=== PATIENT | male | born 1950 | race Caucasian/White ===

== ENCOUNTER → 2018-08-31 | Outpatient (CLI) | payer OTHER ==
--- NOTE | 2018-08-31 15:19 | PCVCIMAG ---
APPROVED REPORT Study performed: 08/31/2018 14:10:11 EXAM: Comprehensive 2D, Doppler, and color-flow Echocardiogram Patient Location: Echo lab Room #: 3Status: routine BSA: 2.11 HR: 75 bpmBP: 142/76 mmHg Rhythm: NSR Other Information Study Quality: Good Risk Factors: Cardiac Risk Factors: Smoking, HTN,, Hyperlipidemia Indications CAD 2D Dimensions IVSd: 11.19 (7-11mm)LVOT Diam: 19.00 (18-24mm) LVDd: 53.20 mm PWd: 8.84 (7-11mm)Ascending Ao: 34.73 (22-36mm) LVDs: 33.37 (25-40mm) Left Atrium: 44.41 (27-40mm) Aortic Root: 34.75 mm LV Single Plane 4CH: 61.66 % LV Single Plane 2CH: 61.84 % Biplane EF: 62.5 % Volumes Left Atrial Volume (Systole) Single Plane 4CH: 79.05 mLSingle Plane 2CH: 77.84 mL LA ESV Index: 40.00 mL/m2 Aortic Valve AoV Peak Chris.: 1.33 m/s AO Peak Gr.: 7.11 mmHgLVOT Max P.00 mmHg LVOT Max V: 1.00 m/s SUNITHA Vmax: 2.22 cm2 Mitral Valve E/A Ratio: 0.8 MV Decel. Time: 256.68 ms MV E Max Chris.: 0.88 m/s MV A Chris.: 1.08 m/s TDI E/Lateral E': 8.00E/Medial E': 14.67 Medial E' Chris.: 0.06 m/s Lateral E' Chris.: 0.11 m/s Pulmonary Valve PV Peak Chris.: 1.10 m/sPV Peak Gr.: 4.84 mmHg OR End Vmax: 0.95 m/s Pulmonary Vein P Vein S: 0.67 m/sP Vein A: 0.31 m/s P Vein D: 0.42 m/sP Vein A Dur.: 96.9 msec P Vein S/D Ratio: 1.60 Tricuspid Valve TR Peak Chris.: 2.34 m/sRAP Estimate: 7.00 mmHg TR Peak Gr.: 21.93 mmHg PA Pressure: 29.00 mmHg Left Ventricle The left ventricle is normal size. There is normal LV segmental wall motion. There is normal left ventricular wall thickness. The left ventricular systolic function is normal. The left ventricular ejection fraction is within the normal range. LVEF is 60-65%. Mild diastolic dysfunction is present (impaired relaxation pattern). Right Ventricle The right ventricle is normal size. The right ventricular systolic function is normal. Atria Left atrium is mildly dilated. Right atrium is mildly dilated. Aortic Valve The aortic valve is normal in structure. No aortic regurgitation is present. There is no aortic valvular stenosis. Mitral Valve The mitral valve is normal in structure. There is no mitral valve regurgitation noted. No evidence of mitral valve stenosis. Tricuspid Valve The tricuspid valve is normal in structure. Trace tricuspid regurgitation. Pulmonary artery pressure is 29 mmHg. Pulmonic Valve The pulmonary valve is normal in structure. Mild pulmonic regurgitation. Great Vessels The aortic root is normal in size. The ascending aorta is normal in size. IVC is normal in size and collapses >50% with inspiration. Pericardium There is no pericardial effusion. <Conclusion> The left ventricular systolic function is normal. There is normal LV segmental wall motion. LVEF is 60-65%. Mild diastolic dysfunction Both atria are mildly dilated. The aortic valve is normal in structure. No aortic regurgitation or stenosis. The mitral valve is normal in structure. No mitral valve regurgitation. Trace tricuspid regurgitation. Pulmonary artery pressure of 29 mmHg. There is no pericardial effusion.
== END | disposition home or self-care (01) ==
LOC: PCVCIMAG 15:00
PROVIDERS: ATTEND Internal Medicine
DX: I25.10 Atherosclerotic heart disease of native coronary artery without angina pectoris (principal); R93.1 Abnormal findings on diagnostic imaging of heart and coronary circulation; R06.09 Other forms of dyspnea; E78.2 Mixed hyperlipidemia
CPT/HCPCS: 93306